=== PATIENT | male | born 1990 | race Caucasian/White ===

== ENCOUNTER 2017-06-05 07:03 | Emergency (ER) | payer OTHER ==
[2017-06-05 07:12] VITALS: BP 147/92; PULSE 90; RESP 16; TEMP 98.2; O2SAT 95
--- NOTE | 2017-06-05 07:19 | EDPHY ---
H & P Stated Complaint: burn to l foot/by hot liquid Time Seen by Provider: 06/05/17 07:18 - Personal History Current Tetanus/Diphtheria Vaccine: Yes - Medical/Surgical History Hx Asthma: No Hx Chronic Respiratory Disease: No Hx Diabetes: No Hx Cardiac Disease: No Hx Renal Disease: No Hx Cirrhosis: No Hx Alcoholism: No Hx HIV/AIDS: No Hx Splenectomy or Spleen Trauma: No Other PMH: denies - Social History Smoking Status: Current every day smoker Constitutional: Initial Vital Signs Temperature (C) 36.8 C 06/05/17 07:10 Heart Rate 90 06/05/17 07:10 Respiratory Rate 16 06/05/17 07:10 Blood Pressure 147/92 H 06/05/17 07:10 O2 Sat (%) 95 06/05/17 07:10 O2 Delivery Mode Room Air Allergies/Adverse Reactions: No Known Allergies Allergy (Unverified 06/05/17 07:10) Home Medications: Medication Instructions Recorded HYDROcodone/APAP 10/325 [[place] 1 - 2 each PO Q4-6PRN PRN #20 tab 06/05/17 10/325] Ibuprofen [Motrin] 800 mg PO Q8 #20 tab 06/05/17 Medical Decision Making ED Course/Re-evaluation: CHIEF COMPLAINT: Left foot burn HISTORY OF PRESENT ILLNESS: This patient is a healthy 27 year old male complaining of pain to his left foot secondary to a burn sustained this morning at 6:30am, one hour prior to arrival. He was brewing a chocolate hood and accidentally poured hot wort onto his foot. He estimates the liquid was about 170-180 degrees at the time. He noted redness and blistering to the skin. Currently, he has significant pain to his left foot. He denies any additional travis or trauma. No further complaints. REVIEW OF SYSTEMS: A 10 point review of systems was performed and is negative with the exception of the elements mentioned in the history of present illness. PHYSICAL EXAM: HR, BP, O2 Sat, RR. Temp noted General Appearance: Alert, well hydrated, appropriate, and non-toxic appearing. Head: Atraumatic without scalp tenderness or obvious injury Eyes: Pupils equal, round, reactive to light and accommodation, EOMI, no trauma , no injection. Throat: Mucus membranes moist. Neck: Supple, nontender Respiratory: No retractions, no distress, no wheezes, and no accessory muscle use. Cardiovascular: Regular rate and rhythm, no murmurs, rubs, or gallops. Bilateral carotid, radial, dorsalis pedis, and posterior tibial pulses intact. Good capillary refill all extremities. Musculoskeletal: Normal active ROM of all extremities, atraumatic. Neurological: Alert, appropriate, and interactive. Nonfocal neuro exam. Skin: Non-circumferential first degree and superficial second degree travis to the left foot. No rashes, good turgor, no nodules on palpation. Past medical history: Denies Past surgical history: Noncontributory Family history: Noncontributory Social history: Works at [employer]. Lives in [place]. Single. DIFFERENTIAL DIAGNOSIS: Includes but not limited to water-based burn, oil-based burn, chemical burn, superficial, first degree, second degree, deep second degree, or third degree burn. MEDICAL DECISION MAKIN27 year old male presents after sustaining a first degree burn to his left foot from hot brewing wort. Exam reveals non-circumferential first degree and superficial second degree travis to the left foot. Plan to clean the foot and apply Bacitracin followed by an occlusive Xeroform dressing. The patient is feeling well. Plan to discharge home in good condition with prescription for Ibuprofen 800mg and [place] for severe pain. Follow up and return precautions discussed. The patient has been given a referral to the wound clinic for further evaluation. He is comfortable with this plan. Departure - Departure Disposition: Home, Routine, Self-Care Clinical Impression: First degree burn of left foot Qualifiers: Encounter type: initial encounter Qualified Code(s): T25.122A - Burn of first degree of left foot, initial encounter Condition: Good Instructions: Superficial Burn (ED) Additional Instructions: 1. Take ibuprofen as prescribed. In addition to relieving pain, this medication will decrease the inflammatory response and speed up healing. 2. Follow up with the wound clinic for further evaluation as needed. 3. Return to the emergency for fever, severe pain, worsening redness, heat, or discharge around the wound, or other worsening of condition. Referrals: [facility] [Clinic] - As per Instructions Prescriptions: HYDROcodone/APAP 10/325 [[place] 10/325] 1 - 2 each PO Q4-6PRN PRN #20 tab PRN Reason: Pain, Moderate Ibuprofen [Motrin] 800 mg PO Q8 #20 tab Report Scribed for: Bean Rodriguez Report Scribed by: Aleshia Kee Date of Report: 06/05/17 Time of Report: 07:30
== END 2017-06-05 08:28 | disposition home or self-care (01) ==
DX: T25.222A Burn of second degree of left foot, initial encounter (principal); F17.200 Nicotine dependence, unspecified, uncomplicated; X10.1XXA Contact with hot food, initial encounter; Y92.69 Other specified industrial and construction area as the place of occurrence of the external cause; Y99.0 Civilian activity done for income or pay; Y93.89 Activity, other specified